=== PATIENT | female | born 1980 | race Two or more races ===

== ENCOUNTER 2016-09-18 15:49 | Emergency (ER) | payer MEDICAID ==
[~2016-09-18] VITALS: Ht 152.4 cm; Wt 79.4 kg
[2016-09-18 16:14] LABS: BASOPHILS % (AUTO) 0.3 % (0.0-2.0); DIFF TOTAL % 100 %; EOSINOPHILS # (AUTO) 0.1 /CMM (0.0-0.7); EOSINOPHILS % (AUTO) 0.6 % (0.0-6.0); HEMATOCRIT 36 % (33-45); HEMOGLOBIN 12.2 g/dL (11.5-14.8); LYMPHOCYTES # (AUTO) 1.8 /CMM (0.8-4.8); LYMPHOCYTES % (AUTO) 13.6 % (20.0-44.0); MEAN CORPUSCULAR HEMOGLOBIN 30 PG (26.0-33.0); MEAN CORPUSCULAR HGB CONC 34 g/dl (31.0-36.0); MEAN CORPUSCULAR VOLUME 88 fL (82-100); MONOCYTES % (AUTO) 8.1 % (2.0-12.0); NEUTROPHILS % (AUTO) 77.4 % (43.0-81.0); PLATELET COUNT (AUTO) 188 /CMM (150-450); RED BLOOD CELL COUNT(AUTO) 4.05 MIL/uL (4.0-5.2); WHITE BLOOD COUNT (AUTO) 12.9 K/uL (4.3-11.0)
[2016-09-18 16:20] LABS: KETONES,URINE 15 (NEGATIVE); LEUKOCYTE ESTERASE ,URINE Moderate (NEGATIVE)
[2016-09-18 16:21] LABS: CALCIUM, SERUM 8.8 mg/dL (8.5-10.1); CREATININE 0.8 mg/dL (0.6-1.3); POTASSIUM 3.6 mmol/L (3.5-5.1)
[2016-09-18 16:22] LABS: PREGNANCY TEST URINE QUAL NEGATIVE (NEGATIVE)
[2016-09-18 16:27] LABS: ALBUMIN 3.6 g/dL (3.4-5.0); BILIRUBIN,DIRECT 0.2 mg/dL (0.0-0.2); BILIRUBIN,TOTAL 0.9 mg/dL (0.2-1.0); INDIRECT BILIRUBIN 0.7 mg/dL (0.0-1.1); TOTAL PROTEIN, SERUM 8.4 g/dL (6.4-8.2)
[2016-09-18] MEDS ORDERED: MORPHINE SULFATE INJ 2 MG/ML DISP.SYRIN IV ONE (16:30)
[2016-09-18] MEDS ORDERED: IV NS 0.9% 1,000 ML BAG IV ONE (16:30)
[2016-09-18] MEDS ORDERED: ONDANSETRON HCL/PF 4 MG/2 ML VIAL IV ONE (16:30)
[2016-09-18] MEDS ORDERED: IV NS 0.9% 1,000 ML ONE (16:44)
[2016-09-18] MEDS ORDERED: ONDANSETRON HCL/PF 4 MG/2 ML VIAL ONE (16:44)
[2016-09-18] MEDS ORDERED: MORPHINE SULFATE INJ 2 MG/ML DISP.SYRIN ONE (16:44)
[2016-09-18] MEDS ORDERED: IV SET PRIMARY 1 EA INFUS.SET MC ONE (16:44)
[2016-09-18 16:45] LABS: ADD UA MICROSCOPIC YES
[2016-09-18] MEDS ORDERED: CIPROFLOXACIN HCL 250 MG TABLET PO ONE (17:00)
[2016-09-18] MEDS ORDERED: CIPROFLOXACIN HCL 500 MG TABLET ONE (17:38)
[2016-09-18 17:51] VITALS: BP 109/75
[2016-09-18 21:27] LABS: ADD URINE CULTURE YES; RBC,URINE 0-2 /HPF (0-2); WBC,URINE 81-100 /HPF (0-3)
== END 2016-09-18 17:53 | disposition home or self-care (01) ==
LOC: ER 15:51
DX: N12 Tubulo-interstitial nephritis, not specified as acute or chronic (principal); E86.0 Dehydration
CPT/HCPCS: 36415; 80048; 80076; 81001; 83690; 84703; 85025; 87086; 87186; 96361; 96374; 96375; 99284; A4606; J2270; J2405; J7030; Z7610; 81000-TC